=== PATIENT | male | born 1990 | race Two or more races ===

== ENCOUNTER 2021-10-10 06:04 | Emergency (ER) | payer OTHER ==
[~2021-10-10] VITALS: Ht 180.3 cm; Wt 86.2 kg
[2021-10-10 06:48] VITALS: BP 96/57
[2021-10-10] MEDS ORDERED: LACTULOSE 20Gm/30ML SOLN PO ONE (07:15)
[2021-10-10] MEDS ORDERED: KETOROLAC TROMETH 60MG/2ML VIAL IM ONE (07:15)
== END 2021-10-10 07:50 | disposition left against medical advice (07) ==
LOC: ER 06:04
DX: R10.11 Right upper quadrant pain (principal); Z53.29 Procedure and treatment not carried out because of patient's decision for other reasons
CPT/HCPCS: 96372; 99283; J1885

== ENCOUNTER 2021-10-12 23:47 | Emergency (ER) | payer OTHER ==
[~2021-10-12] VITALS: Ht 177.8 cm; Wt 87.1 kg
[2021-10-12 23:51] VITALS: BP 144/106
== END 2021-10-13 05:49 | disposition left against medical advice (07) ==
LOC: ER 23:47
DX: R10.11 Right upper quadrant pain (principal); K59.00 Constipation, unspecified; Z53.21 Procedure and treatment not carried out due to patient leaving prior to being seen by health care provider